=== PATIENT | female | born 1965 | race Caucasian/White ===

== ENCOUNTER 2017-09-12 08:54 | Emergency (ER) | payer MEDICARE ==
[~2017-09-12] VITALS: Ht 157.5 cm; Wt 95.3 kg
[2017-09-12 08:57] VITALS: BP_SYST 140
--- NOTE | 2017-09-12 09:00 | NUR ---
Patient brought in for right foot pain descrnibes it as "Plantar fasciitis" for the last 3 months worst for the last 3 weeks, ambulatory, rates 5/10, placed in room 5. Endorsed care to Jeronimo BARAJAS.
--- NOTE | 2017-09-12 09:05 | NUR ---
MD Glover at bedside.
--- NOTE | 2017-09-12 09:12 | NUR ---
Pt presents to ER c/o sharp, shooting pain in R foot x 3 months. Pt reports pain level of 8/10 with certain positions and pressure applied to R foot. Pt suspects she has plantar fascitis. Pt reports that pain level has increased over past 3 months. Pt denies any history or problems with R foot in the past. Pt reports history of hypothyroidism. pt in no acute distress, AOX4, NKDA.
--- NOTE | 2017-09-12 09:20 | NUR ---
Patient transported to radiology via ambulatory, accompanied by rad staff.
--- NOTE | 2017-09-12 09:25 | NUR ---
Returned from radiology, back to [facility].
--- NOTE | 2017-09-12 09:35 | NUR ---
ER at bedside updating pt on results of xray.
--- NOTE | 2017-09-12 09:40 | NUR ---
Shoe cast applied to pt's R foot. Pt states that it fits comfortably. No signs of decreased perfusion or sensation. Pt educated on use of case and home care instructions.
[2017-09-12 09:58] VITALS: BP_SYST 140
--- NOTE | 2017-09-12 09:58 | NUR ---
Patient given written and verbal discharge instructions and verbalizes understanding. ER MD discussed with patient the results and treatment provided. Patient in stable condition. ID arm band removed. Rx of Ibuprofen given. Patient educated on pain management and to follow up with PMD. Pain Scale 2/10 on R foot; pt sent home with pain med prescription to obtain and take at home prn. Opportunity for questions provided and answered.
== END 2017-09-12 09:58 | disposition home or self-care (01) ==
LOC: SED 08:54
DX: S93.601A Unspecified sprain of right foot, initial encounter (principal); X58.XXXA Exposure to other specified factors, initial encounter; Y93.89 Activity, other specified; Y92.89 Other specified places as the place of occurrence of the external cause; Y99.8 Other external cause status
CPT/HCPCS: 99284